=== PATIENT | female | born 1960 | race Caucasian/White ===

== ENCOUNTER → 2018-03-26 | Outpatient (CLI) | payer MEDICARE ==
--- NOTE | 2018-03-26 10:20 | BD ---
EXAMINATION TYPE: Axial Bone Density DATE OF EXAM: 03/26/2018 COMPARISON: NONE CLINICAL HISTORY: post menopausal. Osteoporosis screening. Height: 5'6 Weight: 140 FRAX RISK QUESTIONS: Secondary Osteoporosis: Rheumatoid Arthritis: y RISK FACTORS HISTORY OF: Postmenopausal woman: y MEDICATIONS: Thyroid Medications: Which medication: Levothyroxine How Lon years Additional Medications: arthritis, IBS Additional History: EXAM MEASUREMENTS: Bone mineral densitometry was performed using the [employer] System. Bone mineral density as measured about the Lumbar spine is: ----- L1-L4(G/cm2): 0.779 T Score Values are as follows: ----- L2: -3.6 ----- L3: -3.5 ----- L4: -3.4 ----- L1-L4: -3.3 Bone mineral density about the R hip (g/cm2): 0.606 Bone mineral density about the L hip (g/cm2): 0.718 T Score values are as follows: -----R Neck: -3.1 -----L Neck: -2.3 -----R Total: -2.7 -----L Total: -2.0 IMPRESSION: Osteoporosis (T Score less than -2.5). There is increased fracture risk and therapy is usually indicated based on age. Re-Screen 1-2 years. NOTE: T-SCORE=SD OF THE YOUNG ADULT MEAN.
--- NOTE | 2018-04-04 10:09 | MM ---
Reason for exam: screening (asymptomatic). Last mammogram was performed 2 years and 5 months ago. History: Patient is postmenopausal and is nulliparous. Benign stereotactic core biopsy of the right breast. Benign excisional biopsy of the left breast. Physical Findings: A clinical breast exam by your physician is recommended on an annual basis and results should be correlated with mammographic findings. MG 3D Screening Mammo W/Cad Bilateral CC and MLO view(s) were taken. Prior study comparison: November 02, 2015, mammogram, performed at [facility]. October 30, 2015, mammogram, performed at [facility]. The breast tissue is extremely dense which could obscure a lesion on mammography. Stable benign calcifications. There is no discrete abnormality. No significant changes when compared with prior studies. ASSESSMENT: Benign, BI-RAD 2 RECOMMENDATION: Routine screening mammogram of both breasts in 1 year.
== END ==
LOC: RADMAMWWP 08:23
PROVIDERS: ATTEND Family Medicine
DX: Z12.31 Encounter for screening mammogram for malignant neoplasm of breast (principal); Z78.0 Asymptomatic menopausal state
CPT/HCPCS: 77063; 77067; 77080

== ENCOUNTER 2019-01-20 11:52 | Emergency (ER) | payer MEDICARE ==
[2019-01-20 12:15] VITALS: RESP 16
[2019-01-20] MEDS ORDERED: ONDANSETRON 4 MG/2 ML VIAL IVP STA (12:24)
[2019-01-20] MEDS ORDERED: SODIUM CHLORIDE 0.9% 1,000 ML IV STA (12:24)
[2019-01-20] MEDS ORDERED: KETOROLAC 30 MG/ML 1 ML VIAL IVP STA (12:24)
[2019-01-20 12:44] LABS: Appearance,Urine Clear (Clear); Bilirubin,Urine Negative (Negative); Blood,Urine Negative (Negative); Color,Urine Yellow; Glucose,Urine (UA) Negative (Negative); Ketones,Urine Negative (Negative); Leukocyte Esterase,Urine Negative (Negative); Nitrite,Urine Negative (Negative); Protein,Urine Negative (Negative); Urobilinogen,Urine <2.0 mg/dL (<2.0)
[2019-01-20 12:47] LABS: Basophils % (A) 0 %; Eosinophils % (A) 1 %; HCT 39.7 % (34.0-46.0); HGB 13.7 gm/dL (11.4-16.0); Lymphocytes # (A) 0.6 k/uL (1.0-4.8); Lymphocytes % (A) 7 %; MCH 32.1 pg (25.0-35.0); MCHC 34.5 g/dL (31.0-37.0); Mean Platelet Volume 5.6; Monocytes # (A) 0.1 k/uL (0-1.0); Monocytes % (A) 1 %; Neutrophils # (A) 6.7 k/uL (1.3-7.7); Neutrophils % (A) 90 %; Platelet Count 379 k/uL (150-450); RBC 4.27 m/uL (3.80-5.40); RDW 11.4 % (11.5-15.5); WBC 7.4 k/uL (3.8-10.6)
[2019-01-20 12:52] LABS: INR 0.9 (<1.2); Partial Thromboplastin Time 24.9 sec (22.0-30.0); Prothrombin Time 9.6 sec (9.0-12.0)
[2019-01-20 12:56] LABS: ALT 24 U/L (9-52); AST 26 U/L (14-36); African American GFR (CKD) >90 (>60 ml/min/1.73 sqM); Albumin 4.6 g/dL (3.5-5.0); Alkaline Phosphatase 106 U/L (38-126); Amylase 124 U/L (30-110); Anion Gap 12 mmol/L; Blood Urea Nitrogen 9 mg/dL (7-17); Calcium 9.7 mg/dL (8.4-10.2); Carbon Dioxide 22 mmol/L (22-30); Chloride 108 mmol/L (98-107); Glucose 116 mg/dL (74-99); Potassium 3.7 mmol/L (3.5-5.1); Sodium 142 mmol/L (137-145); Total Bilirubin 0.5 mg/dL (0.2-1.3); Total Protein 7.5 g/dL (6.3-8.2)
--- NOTE | 2019-01-20 13:28 | CT ---
EXAMINATION TYPE: CT abdomen pelvis w con DATE OF EXAM: 01/20/2019 COMPARISON: None HISTORY: LUQ pain CT DLP: 587.2 mGycm Automated exposure control for dose reduction was used. CONTRAST: CT scan of the abdomen pelvis is performed with IV Contrast, patient injected with 100 mL of Isovue 3 00. FINDINGS- LUNG BASES-subsegmental changes involving the lung bases.. LIVER/GB-suspect a small gallbladder polyp or adherent gallstone.. PANCREAS-there is ill-defined attenuation in the region of the head of the pancreas which may be rela paradise to partial volume averaging with duodenum. However, MRI follow-up is recommended to assess the pe ripancreatic region. SPLEEN- No gross abnormality is seen. ADRENALS- No gross abnormality is seen. KIDNEYS/BLADDER- no hydronephrosis or nephrolithiasis. Sub-5 mm right renal lesions too small to charis acterize. BOWEL-a fluid-filled prominent bowel loops involving the sigmoid colon.. Appendix normal. There is pr ominence of the gastric wall as well as the duodenum. LYMPH NODES- No greater than 1cm abdominal or pelvic lymph nodes areappreciated. OSSEOUS STRUCTURES-severe degenerative disc disease L4-L5. OTHER- endometrium prominent. Aorta of normal caliber with mild atherosclerotic changes.. IMPRESSION- 1. There is a fluid-filled left colonic and sigmoid colon bowel loops may been the basis of an ileus or mild colitis correlate clinically. There is a segment of narrowed bowel in the sigmoid region whi ch may be related to peristalsis rather than mucosal lesion correlate with direct visualization as cl inically warranted. 2. There is soft tissue prominence in the peripancreatic region and duodenal sweep. No thickening of the gastric wall noted. Ill-defined attenuation is seen which most likely related the duodenum rather than pancreas. Recommend follow-up upper GI to assess the stomach, and duodenum for possible peptic ulcer disease or mucosal lesion. MRI follow-up to assess the pancreas also recommended. 3.Prominent endometrium correlate with the phase of patient's menstrual cycle.
--- NOTE | 2019-01-20 14:28 | ED ---
Abdominal Pain HPI - General Chief Complaint: Abdominal Pain Stated Complaint: Lt side pain Time Seen by Provider: 01/20/19 12:03 Source: patient Mode of arrival: ambulatory Limitations: no limitations - History of Present Illness Initial Comments: Patient is a 58-year-old female, with past medical history of RA, presenting to the emergency Department with complaints of left upper quadrant pain 4 days. Patient states the pain is sharp and constant in nature, located in her left upper quadrant, left side. Patient denies fever, chills, nausea, vomiting, diarrhea this time. Patient does admit to feeling nauseous 2 days ago with one episode of vomiting. Patient denies any chest pain, shortness of breath, urinary complaints. Patient has no other complaints at this time. Patient admits history of tummy tuck, no other additional abdominal surgeries. Upon arrival to ER, vital signs are stable. - Related Data Home Medications Medication Instructions Recorded Confirmed Abatacept/Maltose [Orencia] 750 mg IVPB Q28D 01/20/19 01/20/19 Atorvastatin [Lipitor] 40 mg PO DAILY 01/20/19 01/20/19 DULoxetine HCL [Cymbalta] 30 mg PO DAILY 01/20/19 01/20/19 HYDROcodone/IBUPROFEN 7.5-200 1 tab PO QID PRN 01/20/19 01/20/19 [Vicoprofen 7.5-200 mg] Levothyroxine Sodium [Synthroid] 100 mg PO DAILY 01/20/19 01/20/19 Linaclotide [Linzess] 290 mcg PO DAILY 01/20/19 01/20/19 Suvorexant [Belsomra] 20 mg PO HS PRN 01/20/19 01/20/19 predniSONE 20 mg PO DAILY PRN 01/20/19 01/20/19 Allergies Allergy/AdvReac Type Severity Reaction Status Date / Time Penicillins Allergy Anaphylaxis Verified 01/20/19 13:07 Review of Systems ROS Statement: Those systems with pertinent positive or pertinent negative responses have been documented in the HPI. ROS Other: All systems not noted in ROS Statement are negative. Past Medical History Past Medical History: Rheumatoid Arthritis (RA) History of Any Multi-Drug Resistant Organisms: None Reported Past Surgical History: Joint Replacement, Orthopedic Surgery, Tonsillectomy Additional Past Surgical History / Comment(s): right knee Past Psychological History: No Psychological Hx Reported Smoking Status: Never smoker Past Alcohol Use History: Occasional Past Drug Use History: None Reported General Exam - General Exam Comments Initial Comments: GENERAL: Well-appearing, well-nourished and in no acute distress. HEAD: Atraumatic, normocephalic. EYES: Pupils equal round and reactive to light, extraocular movements intact, sclera anicteric, conjunctiva are normal. ENT: TMs normal, nares patent, oropharynx clear without exudates. Moist mucous membranes. NECK: Normal range of motion, supple without lymphadenopathy or JVD. LUNGS: Breath sounds clear to auscultation bilaterally and equal. No wheezes rales or rhonchi. HEART: Regular rate and rhythm without murmurs, rubs or gallops. ABDOMEN: Tenderness to palpation in the left upper quadrant, left side of abdomen, mild epigastric tenderness. Soft, normoactive bowel sounds. No guarding, no rebound. No masses appreciated. : Deferred EXTREMITIES: Normal range of motion, no pitting or edema. No clubbing or cyanosis. NEUROLOGICAL: Cranial nerves II through XII grossly intact. Normal speech, normal gait. PSYCH: Normal mood, normal affect. SKIN: Warm, Dry, normal turgor, no rashes or lesions noted. Limitations: no limitations Course Vital Signs 01/20/19 01/20/19 11:58 14:38 Temperature 98.4 F 98.0 F Pulse Rate 97 73 Respiratory 16 16 Rate Blood Pressure 130/98 141/86 O2 Sat by Pulse 100 99 Oximetry Medical Decision Making - Medical Decision Making Patient is a 58-year-old female presenting with left upper quadrant pain 5 days. Patient's vital signs are stable upon arrival. CBC, coags, CMP are within normal limits. UA is normal. CT reveals fluid-filled the left colonic and sigmoid: Bowel loops which may be related to colitis. There is also a soft tissue prominence in the peripancreatic region. Recommended follow up with GI to assess the stomach for possible ulcer. MRI follow-up recommended to assess the pancreas. These findings were discussed with the patient she verbalized understanding. It was discussed with patient that this could be related to an ulcer, colitis or another viral illness. Patient will continue with Motrin or Tylenol for pain relief. Patient also given referral for GI follow-up. Patient is agreement with this plan of care. Patient stable for discharge at this time. Return parameters were discussed with the patient she verbalized understanding. Case discussed with Dr. Deng. - Lab Data Result diagrams: 01/20/19 12:34 01/20/19 12:34 Lab Results 01/20/19 01/20/19 01/20/19 Range/Units 12:34 12:34 12:34 WBC 7.4 (3.8-10.6) k/uL RBC 4.27 (3.80-5.40) m/uL Hgb 13.7 (11.4-16.0) gm/dL Hct 39.7 (34.0-46.0) % MCV 93.0 (80.0-100.0) fL MCH 32.1 (25.0-35.0) pg MCHC 34.5 (31.0-37.0) g/dL RDW 11.4 L (11.5-15.5) % Plt Count 379 (150-450) k/uL Neutrophils % 90 % Lymphocytes % 7 % Monocytes % 1 % Eosinophils % 1 % Basophils % 0 % Neutrophils # 6.7 (1.3-7.7) k/uL Lymphocytes # 0.6 L (1.0-4.8) k/uL Monocytes # 0.1 (0-1.0) k/uL Eosinophils # 0.0 (0-0.7) k/uL Basophils # 0.0 (0-0.2) k/uL PT (9.0-12.0) sec INR (<1.2) APTT (22.0-30.0) sec Sodium 142 (137-145) mmol/L Potassium 3.7 (3.5-5.1) mmol/L Chloride 108 H (98-107) mmol/L Carbon Dioxide 22 (22-30) mmol/L Anion Gap 12 mmol/L BUN 9 (7-17) mg/dL Creatinine 0.61 (0.52-1.04) mg/dL Est GFR (CKD-EPI)AfAm >90 (>60 ml/min/1.73 sqM) Est GFR (CKD-EPI)NonAf >90 (>60 ml/min/1.73 sqM) Glucose 116 H (74-99) mg/dL Calcium 9.7 (8.4-10.2) mg/dL Total Bilirubin 0.5 (0.2-1.3) mg/dL AST 26 (14-36) U/L ALT 24 (9-52) U/L Alkaline Phosphatase 106 (38-126) U/L Total Protein 7.5 (6.3-8.2) g/dL Albumin 4.6 (3.5-5.0) g/dL Amylase 124 H (30-110) U/L Lipase 235 (23-300) U/L Urine Color Yellow Urine Appearance Clear (Clear) Urine pH 6.0 (5.0-8.0) Ur Specific [place] 1.010 (1.001-1.035) Urine Protein Negative (Negative) Urine Glucose (UA) Negative (Negative) Urine Ketones Negative (Negative) Urine Blood Negative (Negative) Urine Nitrite Negative (Negative) Urine Bilirubin Negative (Negative) Urine Urobilinogen <2.0 (<2.0) mg/dL Ur Leukocyte Esterase Negative (Negative) 01/20/19 Range/Units 12:34 WBC (3.8-10.6) k/uL RBC (3.80-5.40) m/uL Hgb (11.4-16.0) gm/dL Hct (34.0-46.0) % MCV (80.0-100.0) fL MCH (25.0-35.0) pg MCHC (31.0-37.0) g/dL RDW (11.5-15.5) % Plt Count (150-450) k/uL Neutrophils % % Lymphocytes % % Monocytes % % Eosinophils % % Basophils % % Neutrophils # (1.3-7.7) k/uL Lymphocytes # (1.0-4.8) k/uL Monocytes # (0-1.0) k/uL Eosinophils # (0-0.7) k/uL Basophils # (0-0.2) k/uL PT 9.6 (9.0-12.0) sec INR 0.9 (<1.2) APTT 24.9 (22.0-30.0) sec Sodium (137-145) mmol/L Potassium (3.5-5.1) mmol/L Chloride (98-107) mmol/L Carbon Dioxide (22-30) mmol/L Anion Gap mmol/L BUN (7-17) mg/dL Creatinine (0.52-1.04) mg/dL Est GFR (CKD-EPI)AfAm (>60 ml/min/1.73 sqM) Est GFR (CKD-EPI)NonAf (>60 ml/min/1.73 sqM) Glucose (74-99) mg/dL Calcium (8.4-10.2) mg/dL Total Bilirubin (0.2-1.3) mg/dL AST (14-36) U/L ALT (9-52) U/L Alkaline Phosphatase (38-126) U/L Total Protein (6.3-8.2) g/dL Albumin (3.5-5.0) g/dL Amylase (30-110) U/L Lipase (23-300) U/L Urine Color Urine Appearance (Clear) Urine pH (5.0-8.0) Ur Specific [place] (1.001-1.035) Urine Protein (Negative) Urine Glucose (UA) (Negative) Urine Ketones (Negative) Urine Blood (Negative) Urine Nitrite (Negative) Urine Bilirubin (Negative) Urine Urobilinogen (<2.0) mg/dL Ur Leukocyte Esterase (Negative) Disposition Clinical Impression: Epigastric pain, Left upper quadrant pain Disposition: HOME SELF-CARE Condition: Stable Instructions (If sedation given, give patient instructions): Abdominal Pain (ED) Additional Instructions: Please return to the Emergency Department if symptoms worsen or any other concerns. Recommend follow-up for GI for further testing. Continue with Motrin for pain relief. Is patient prescribed a controlled substance at d/c from ED?: No Referrals: Jayjay Lawrence MD [Primary Care Provider] - 1-2 days Anabel Hancock MD [STAFF PHYSICIAN] - 1-2 days
[2019-01-20 14:39] VITALS: BP 141/86; PULSE 73; TEMP 98
== END 2019-01-20 14:35 | disposition home or self-care (01) ==
LOC: EC 11:52
DX: R10.12 Left upper quadrant pain (principal); R10.13 Epigastric pain; M06.9 Rheumatoid arthritis, unspecified; Z96.651 Presence of right artificial knee joint; Z79.890 Hormone replacement therapy; Z79.899 Other long term (current) drug therapy; Z88.0 Allergy status to penicillin
CPT/HCPCS: 36415; 80053; 82150; 83690; 85025; 85610; 85730; 81003; 74177; 99284; 96374; 96375; 96361; J2405; J1885; Q9967

== ENCOUNTER → 2019-01-22 | Outpatient (CLI) | payer MEDICARE ==
[~2019-01-22] MED LIST: DENOSUMAB 60 MG/ML 1 ML SYRINGE SQ ONE
[2019-01-22 11:48] VITALS: BP 134/84; PULSE 64; RESP 18; TEMP 97.8
== END ==
LOC: PROCWHC3 11:36
PROVIDERS: ATTEND Physician Assistant
DX: M81.0 Age-related osteoporosis without current pathological fracture (principal)
CPT/HCPCS: 96372; J0897

== ENCOUNTER → 2019-01-23 | Outpatient (CLI) | payer MEDICARE ==
[2019-01-23 19:32] LABS: Carcinoembryonic Antigen 0.9 ng/mL (0.0-4.9)
[2019-01-23 20:01] LABS: Cancer Antigen 19-9 16.4 U/mL (0.0-34.9)
== END | disposition home or self-care (01) ==
LOC: LABWHC1 12:47
PROVIDERS: ATTEND Nurse Practitioner
DX: R10.9 Unspecified abdominal pain (principal)
CPT/HCPCS: 36415; 82378; 86301

== ENCOUNTER → 2019-01-31 | Day surgery (SDC) | payer MEDICARE ==
[2019-01-28 14:17] VITALS: BMI 21.2
[~2019-01-31] MED LIST changes: -DENOSUMAB 60 MG/ML 1 ML SYRINGE SQ ONE; +LACTATED RINGERS 1,000 ML IV SCH; +LIDOCAINE 1% 20 ML VIAL (10MG/ML) FOR IV START INTRADERMA PRN; +PROPOFOL 10 MG/ML 20 ML VIAL IV ONE
[2019-01-31 12:29] VITALS: RESP 16; TEMP 98.6
--- NOTE | 2019-01-31 13:28 | P.PCN ---
Date of Procedure: 01/31/19 Procedure(s) Performed: Brief history: Patient is a pleasant 64-year-old pleasant white female, scheduled for an elective upper endoscopy as well as colonoscopy as a part of evaluation of left upper quadrant abdominal pain for the last several weeks duration. She had CT of abdomen and pelvis done that showed fullness the duodenum and head of the pancreas as well as thickening of the sigmoid colon. Procedure performed: Esophagogastroduodenoscopy with biopsy Colonoscopy with snare polypectomy Preoperative diagnosis: Left upper quadrant abdominal pain Change in bowel habits/abdominal CAT scan of abdomen Anesthesia: MAC Procedure: After informed consent was obtained from the patient was brought into the endoscopy unit and IV sedation was administered by anesthesia under continuous monitoring. Initially upper endoscopy was done. The Olympus GF 160 video endoscope was inserted inserted into the mouth and esophagus intubated without any difficulty and was gradually advanced into the stomach and duodenum and carefully examined. The bulb and second part of the duodenum appeared normal. The scope was then withdrawn into the stomach adequately insufflated with air and upon careful examination the antrum had mild gastritis and biopsies were done from this area. The body, cardia and fundus appeared normal. in the proximal body there were 2 small gastric polyps noted which were biopsied. The scope was then withdrawn into the esophagus. The GE junction was located at 40 cm to the incisors. It appeared regular with no erythema erosions or ulcerations. Rest of the esophagus appeared normal. Patient tolerated the procedure well. At this time the patient continued to remain sedation. Initial digital rectal examination was normal. Olympus CF 160 video colonoscope was then inserted into the rectum and gradually advanced to the cecum without any difficulty. Careful examination was performed as the scope was gradually being withdrawn. The prep was excellent. The cecum, ascending colon, transverse colon, descending colon, sigmoid colon and rectum was diffuse blackish pigmentation throughout the entire colon consistent with melanosis coli. In the base of the cecum there were 2 polyps measuring 1 cm and 2 cm in size which were broad-based both of which were removed by snare polypectomy. Retroflexion was performed in the rectum and no lesions were noted. Patient tolerated the procedure well. Impression: 1.Upper endoscopy revealed mild antral gastritis and small gastric polyps. 2.Colonoscopy revealed severe melanosis coli and 2polyps in the cecum measuring 1 and 2 cm in size both of which were removed by snare polypectomy Recommendations: Findings of this examination were discussed with the patient as well jennifer family. She was advised to follow with the biopsy results. The biopsy the colon polyps revealed adenoma she can have a repeat colonoscopy in 3 years.
[2019-01-31 14:05] VITALS: BP 124/65; PULSE 70
== END | disposition home or self-care (01) ==
LOC: ORWHC2ENDO 12:03
PROVIDERS: ATTEND Internal Medicine Gastroenterology
DX: D12.0 Benign neoplasm of cecum (principal); K29.50 Unspecified chronic gastritis without bleeding; K63.89 Other specified diseases of intestine; K31.7 Polyp of stomach and duodenum; K21.0 Gastro-esophageal reflux disease with esophagitis; Z88.0 Allergy status to penicillin; E07.9 Disorder of thyroid, unspecified; M06.9 Rheumatoid arthritis, unspecified; F41.9 Anxiety disorder, unspecified; Z79.890 Hormone replacement therapy; Z79.52 Long term (current) use of systemic steroids; Z79.899 Other long term (current) drug therapy; Z79.82 Long term (current) use of aspirin
CPT/HCPCS: 88305; 45385; 43239; J2704

== ENCOUNTER → 2019-02-06 | Outpatient (CLI) | payer MEDICARE ==
--- NOTE | 2019-02-07 03:24 | MR ---
EXAMINATION TYPE: MR abdomen wo/w con DATE OF EXAM: 02/06/2019 COMPARISON: None HISTORY: Abdomen pain CONTRAST: Standard multiplanar, multisequence MRI departmental protocol utilizing 6.5 mL intravenous Gadavist g adolinium contrast. FINDINGS: Liver has fairly normal size and contour. The bile ducts are not dilated. Gallbladder is la rge. Common bile duct measures 7 mm. The spleen is intact. There is no sign of a pancreatic mass. Alva creatic duct is tortuous. There is no adrenal mass. Kidneys show satisfactory contrast opacification. There is no hydronephrosi s. There is no retroperitoneal adenopathy. There is no ascites. There is no sign of pleural effusion. I see no evidence of a pancreatic mass. IMPRESSION: The pancreas is irregular contour but no discrete mass seen. No dilated ducts. No focal liver defect.
== END | disposition home or self-care (01) ==
LOC: RADMRIMAIN 07:51
PROVIDERS: ATTEND Nurse Practitioner
DX: R93.5 Abnormal findings on diagnostic imaging of other abdominal regions, including retroperitoneum (principal); K59.09 Other constipation
CPT/HCPCS: 74183; A9585

== ENCOUNTER → 2019-07-31 | Outpatient (CLI) | payer MEDICARE ==
[~2019-07-31] MED LIST changes: +DENOSUMAB 60 MG/ML 1 ML SYRINGE SQ NR; -LACTATED RINGERS 1,000 ML IV SCH; -LIDOCAINE 1% 20 ML VIAL (10MG/ML) FOR IV START INTRADERMA PRN; -PROPOFOL 10 MG/ML 20 ML VIAL IV ONE
[2019-07-31 09:24] VITALS: BP 130/60; PULSE 66; RESP 16; TEMP 97.8
== END | disposition home or self-care (01) ==
LOC: PROCWHC3 09:10
PROVIDERS: ATTEND Physician Assistant
DX: M81.0 Age-related osteoporosis without current pathological fracture (principal)
CPT/HCPCS: 96372

== ENCOUNTER → 2020-08-03 | Outpatient (CLI) | payer MEDICARE ==
--- NOTE | 2020-08-03 10:13 | BD ---
EXAMINATION TYPE: Axial Bone Density DATE OF EXAM: 08/03/2020 COMPARISON: 03/26/2018 DEXA bone scan. CLINICAL HISTORY: Postmenopausal female. Height: 65.5 IN Weight: 136 LBS FRAX RISK QUESTIONS: History of Fracture in Adulthood: FERMIN FOOT FX AGE 57 Secondary Osteoporosis: Rheumatoid Arthritis: YES RISK FACTORS HISTORY OF: Family History of Osteoporosis: YES MOTHER Active: YES Diet low in dairy products/other sources of calcium: YES Postmenopausal woman: AGE 51 Take estrogen and/or progesterone medications: NOT NOW How long: TOOK CONTROL FOR 20 YEARS Adrenal Insufficiency: YES MEDICATIONS: Thyroid Medications: YES Which medication: FIGUEROA TAB AND NATURE THYROID How Long: TOOK THYROID MEDS 30 YEARS. TAKING NATURAL THYROID MEDS 1 YEAR Osteoporosis Medications: YES Which medication: Prolia How Lon YEAR Additional Medications: NATURE THYROID, FIGUEROA TAB, LEFLUNOMIDE, CYMBALTA, LINZESS, VICOPROFEN, MAGNESI UM, ADRENAL MEDS, RA MEDS, MULTI VIT, IRON EXAM MEASUREMENTS: Bone mineral densitometry was performed using the [employer] System. Bone mineral density as measured about the Lumbar spine is: ----- L1-L4(G/cm2): 0.777 T Score Values are as follows: ----- L2: -3.6 ----- L3: -3.5 ----- L4: -3.4 ----- L1-L4: -3.4 Bone mineral density has: NO CHANGE 0.0% since study of: 03/26/2018 Bone mineral density about the R hip (g/cm2): 0.623 Bone mineral density about the L hip (g/cm2): 0.706 T Score values are as follows: -----R Neck: -3.0 -----L Neck: -2.4 -----R Total: -2.5 -----L Total: -2.1 Bone mineral density has: Increased 0.6% since study of: 03/26/2018 IMPRESSION: Osteoporosis (T Score less than -2.5) remains present. There remains increased fracture risk and therapy is usually indicated based on age. Re-Screen 1-2 years. NOTE: T-SCORE=SD OF THE YOUNG ADULT MEAN.
== END | disposition home or self-care (01) ==
LOC: RADBDWWP 07:25
PROVIDERS: ATTEND Family Medicine
DX: M81.0 Age-related osteoporosis without current pathological fracture (principal); M85.89 Other specified disorders of bone density and structure, multiple sites; Z78.0 Asymptomatic menopausal state
CPT/HCPCS: 77080

== ENCOUNTER → 2020-09-14 | Outpatient (CLI) | payer MEDICARE ==
[2020-09-14 14:31] VITALS: BP 154/90; PULSE 79; RESP 16; TEMP 97.4
== END | disposition home or self-care (01) ==
LOC: PROCWHC3 14:22
PROVIDERS: ATTEND Family Medicine
DX: M81.0 Age-related osteoporosis without current pathological fracture (principal)
CPT/HCPCS: 96372

== ENCOUNTER → 2020-09-15 | Outpatient (CLI) | payer MEDICARE ==
--- NOTE | 2020-09-22 10:01 | MM ---
Reason for exam: screening (asymptomatic). Last mammogram was performed 2 years and 6 months ago. History: Patient is postmenopausal and is nulliparous. Benign stereotactic core biopsy of the right breast. Benign excisional biopsy of the left breast. Physical Findings: A clinical breast exam by your physician is recommended on an annual basis and results should be correlated with mammographic findings. MG 3D Screening Mammo W/Cad Bilateral CC and MLO view(s) were taken. Prior study comparison: March 26, 2018, bilateral MG 3d screening mammo w/cad. November 02, 2015, mammogram, performed at [facility]. The breast tissue is extremely dense which could obscure a lesion on mammography. No significant changes when compared with prior studies. ASSESSMENT: Benign, BI-RAD 2 RECOMMENDATION: Routine screening mammogram of both breasts in 1 year.
== END | disposition home or self-care (01) ==
LOC: RADMAMWWP 13:39
PROVIDERS: ATTEND Family Medicine
DX: Z12.31 Encounter for screening mammogram for malignant neoplasm of breast (principal); Z98.890 Other specified postprocedural states
CPT/HCPCS: 77063; 77067

== ENCOUNTER → 2021-06-30 | Outpatient (CLI) | payer MEDICARE ==
--- NOTE | 2021-07-20 11:37 | EM ---
14 Day Event monitor note (only worn for 6 days): Patient wore an event monitor for 6 days from 06/30/2021 until 07/05/2021. Findings: Patient's baseline heart rate was normal sinus rhythm. There were no signficant atrial fibrillation, atrial flutter, or ventricular tachycardia episodes. There were no significant pauses greater than 2 seconds. There were rare PACs representing less than 1% of PAC burden. Patient had one 17 beat run of SVT at approximately 150 bpm. Patient had a total of 13 patient activated events with half of these corresponding with normal sinus rhythm and a half corresponding with PACs and one with SVT. Conclusions: 6 day event monitor showing normal sinus rhythm and rare PACs and one episode of 17 beat run of SVT at approximately 150 bpm. Patient was symptomatic for occasional PACs and occasional SVT however also symptoms not specified corresponding with normal sinus rhythm. [facility]
== END | disposition home or self-care (01) ==
LOC: RADECHMAIN 12:29
PROVIDERS: ATTEND Family Medicine
DX: R00.2 Palpitations (principal)
CPT/HCPCS: 93270

== ENCOUNTER → 2021-08-10 | Outpatient (CLI) | payer MEDICARE ==
[2021-08-10 10:43] VITALS: BP 127/46; PULSE 73; RESP 16; TEMP 98.2
== END | disposition home or self-care (01) ==
LOC: PROCWHC3 10:20
PROVIDERS: ATTEND Nurse Practitioner Family
DX: M81.0 Age-related osteoporosis without current pathological fracture (principal)
CPT/HCPCS: 96372; J0897

== ENCOUNTER → 2022-02-13 | Outpatient (CLI) | payer MEDICARE ==
[2022-02-13 13:57] VITALS: BP 157/90; PULSE 80; RESP 16; TEMP 98
== END ==
LOC: PROCWHC3 13:18
DX: M81.0 Age-related osteoporosis without current pathological fracture (principal); Z88.0 Allergy status to penicillin
CPT/HCPCS: 96372; J0897

== ENCOUNTER → 2022-03-14 | Outpatient (CLI) | payer MEDICARE ==
[2022-03-14 18:44] LABS: Basophils # (A) 0.05 X 10*3/uL (0.00-0.10); Basophils % (A) 0.7 %; Eosinophils # (A) 0.08 X 10*3/uL (0.04-0.35); Eosinophils % (A) 1.1 %; HCT 41.3 % (37.2-46.3); HGB 13.5 g/dL (12.0-15.0); Immature Grans, Automated 0.3 %; Lymphocytes # (A) 1.47 X 10*3/uL (0.90-5.00); Lymphocytes % (A) 19.7 %; MCH 32.3 pg (27.0-32.0); MCHC 32.7 g/dL (32.0-37.0); MCV 98.8 fL (80.0-97.0); Mean Platelet Volume 9.8 fL (9.5-12.2); Monocytes # (A) 0.55 X 10*3/uL (0.20-1.00); Monocytes % (A) 7.4 %; NRBC Per 100 WBC 0 /100 WBCS (0.0-0.0); Neutrophils # (A) 5.29 X 10*3/uL (1.80-7.70); Neutrophils % (A) 70.8 %; Platelet Count 326 X 10*3/uL (140-440); RBC 4.18 X 10*6/uL (4.10-5.20); RDW 11.1 % (11.5-14.5); WBC 7.46 X 10*3/uL (4.50-10.00)
[2022-03-14 19:05] LABS: Erythrocyte Sedimentation Rate 1 mm/Hr (0-30)
[2022-03-14 19:12] LABS: ALT 19 U/L (8-44); AST 20 U/L (13-35); Albumin 4.7 g/dL (3.8-4.9); Alkaline Phosphatase 71 U/L (41-126)
[2022-03-14 19:22] LABS: African American GFR (CKD) 110.3 (60.0-200.0); Bilirubin, Conjugated <0.20 mg/dL (0.20-0.40); Blood Urea Nitrogen 14.7 mg/dL (9.0-27.0); C Reactive Protein <0.30 mg/dL (0.00-0.80); Calcium 9.6 mg/dL (8.7-10.3); Carbon Dioxide 22.3 mmol/L (20.0-27.5); Chloride 104 mmol/L (96-109); Non-African American GFR(CKD) 95.1 (60.0-200.0); Potassium 3.9 mmol/L (3.5-5.5); Sodium 140 mmol/L (135-145)
== END | disposition home or self-care (01) ==
LOC: LABWHC1 10:58
PROVIDERS: ATTEND Internal Medicine Rheumatology
DX: M06.09 Rheumatoid arthritis without rheumatoid factor, multiple sites (principal); Z79.899 Other long term (current) drug therapy
CPT/HCPCS: 36415; 80051; 82040; 82248; 82310; 82565; 84075; 84155; 84450; 84460; 84520; 85025; 85652; 86140

== ENCOUNTER → 2022-08-15 | Outpatient (CLI) | payer MEDICARE ==
[2022-08-15 12:09] VITALS: BP 139/85; PULSE 81; RESP 14; TEMP 97.9
== END ==
LOC: PROCWHC3 11:47
PROVIDERS: ATTEND Family Medicine
DX: M81.0 Age-related osteoporosis without current pathological fracture (principal)
CPT/HCPCS: 96372; J0897

== ENCOUNTER → 2023-11-05 | Outpatient (CLI) | payer MEDICARE ==
--- NOTE | 2023-11-06 10:26 | MM ---
Reason for Exam: Screening (asymptomatic). Last mammogram was performed 1 year(s) and 11 month(s) ago. Patient History: Menarche at age 11. Patient has no children. Postmenopausal. Patient used Hormonal Contraceptives for 7 years. Benign Stereotactic Core Biopsy on the right side. Benign Excisional Biopsy on the left side. Risk Values: Andreina 5 year model risk: 2.8%. NCI Lifetime model risk: 10.3%. Prior Study Comparison: 03/26/2018 Bilateral Screening Mammogram, [facility]. 09/15/2020 Bilateral Screening Mammogram, [facility]. 11/25/2021 Bilateral MG 3D screening mammo w/cad, [facility]. Tissue Density: The breasts are extremely dense, which lowers the sensitivity of mammography. Findings: Analyzed By CAD. There is no suspicious group of microcalcifications or new suspicious mass in either breast. Overall Assessment: Benign, BI-RAD 2 Management: Screening Mammogram of both breasts in 1 year. . Patient should continue monthly self-breast exams. A clinical breast exam by your physician is recommended on an annual basis. This exam should not preclude additional follow-up of suspicious palpable abnormalities. Note on Andreina scores and lifetime risk: 1. A Andreina score greater than 3% is considered moderate risk. If this is the case, consider specialist referral to assess eligibility for a risk reducing agent. 2. If overall lifetime risk for the development of breast cancer is 20% or higher, the patient may qualify for future screening with alternating mammogram and breast MRI. Electronically signed and approved by: Juan Canchola M.D. Radiologis
--- NOTE | 2023-11-06 12:30 | BD ---
EXAMINATION TYPE: Axial Bone Density DATE OF EXAM: 11/05/2023 CLINICAL HISTORY: 63 years old Female. ICD-10 CODE: Z78.0 Post menopausal Height: 65 Weight: 143.3 FRAX RISK QUESTIONS: Alcohol (3 or more units per day): no Family History (Parent hip fracture): no Glucocorticoids (More than 3mos): no (Ex: prednisone, prednisolone, methylprednisolone, dexamethasone, and hydrocortisone). History of Fracture in Adulthood: no Secondary Osteoporosis: 1. Type 1 Diabetes: no 2. Hyperthyroidism: no 3. Menopause before 45: no 4. Malnutrition: no 5. Chronic liver disease: no Rheumatoid Arthritis: yes Current Tobacco Use: no RISK FACTORS HISTORY OF: Surgery to Spine/Hip(right/left)/Wrist (right/left): no MEDICATIONS: Thyroid Medications: synthroid How Lon years Osteoporosis Medications: prolia Which medication: last had a shot over a year ago EXAM MEASUREMENTS: Bone mineral densitometry was performed using the [employer] System. Bone mineral density as measured about the Lumbar spine is: ----- L1-L4(G/cm2): 0.739 T Score Values are as follows: ----- L1: -3.5 ----- L2: -4.2 ----- L3: -4.1 ----- L4: -3.2 ----- L1-L4: -3.7 Z Score Values are as follows: ----- L1: -1.9 ----- L2: -2.6 ----- L3: -2.5 ----- L4: -1.6 ----- L1-L4: -2.1 Bone mineral density has: decreased -4.9 % since study of: 08.03.2020 Bone mineral density about the R hip (g/cm2): 0.649 Bone mineral density about the L hip (g/cm2): 0.705 T Score values are as follows: -----R Neck: -3.3 -----L Neck: -2.8 -----R Total: -2.8 -----L Total: -2.4 Z Score values are as follows: -----R Neck: -1.9 -----L Neck: -1.3 -----R Total: -1.6 -----L Total: -1.2 Bone mineral density has: decreased -5.7 % since study of: 4..2020 FRAX%s: The graph provided illustrates a 25.3% chance for a major osteoporotic fx and a 10.0% chance for the hips probability for fx in 10 years time. IMPRESSION: Osteoporosis (T Score less than -2.5). There is increased fracture risk and therapy is usually indicated based on age. Re-Screen 1-2 years. NOTE: T-SCORE=SD OF THE YOUNG ADULT MEAN.
== END | disposition home or self-care (01) ==
LOC: RADMAMWWP 14:15
PROVIDERS: ATTEND Family Medicine
DX: Z12.31 Encounter for screening mammogram for malignant neoplasm of breast (principal); R92.343 Mammographic extreme density, bilateral breasts; Z78.0 Asymptomatic menopausal state; M85.89 Other specified disorders of bone density and structure, multiple sites
CPT/HCPCS: 77063; 77067; 77080

== ENCOUNTER → 2023-11-28 | Outpatient (CLI) | payer MEDICARE ==
[~2023-11-28] MED LIST changes: -DENOSUMAB 60 MG/ML 1 ML SYRINGE SQ NR; +DENOSUMAB 60 MG/ML 1 ML SYRINGE SQ ONE
== END ==
LOC: PROCWHC3 12:30
PROVIDERS: ATTEND Nurse Practitioner Family
DX: M81.0 Age-related osteoporosis without current pathological fracture (principal)
CPT/HCPCS: 96372

== ENCOUNTER → 2024-03-21 | Day surgery (SDC) | payer MEDICARE ==
[2024-03-20 12:19] VITALS: BMI 22.6
[~2024-03-21] MED LIST changes: -DENOSUMAB 60 MG/ML 1 ML SYRINGE SQ ONE; +LIDOCAINE 1% (10MG/ML) FOR IV START INTRADERMA PRN; +PROPOFOL 10 MG/ML 20 ML VIAL IV ONE
[2024-03-21 11:06] VITALS: RESP 18; TEMP 97.6
[2024-03-21] MEDS: LACTATED RINGERS 1,000 ML IV SCH (11:17)
[2024-03-21] MEDS: IV FLUID CONTINUATION 1,000 ML IV ONE (11:18)
--- NOTE | 2024-03-21 12:01 | P.PCN ---
Date of Procedure: 03/21/24 Procedure(s) Performed: BRIEF HISTORY: Patient is a 64-year-old pleasant female scheduled for an elective colonoscopy as a part of evaluation of prior history of colon polyps PROCEDURE PERFORMED: Colonoscopy with biopsy. PREOPERATIVE DIAGNOSIS: History of colon polyps. IV sedation per Anesthesia. PROCEDURE: After informed consent was obtained, the patient, was brought into the endoscopy unit. IV sedation was administered by Anesthesia under continuous monitoring. Digital rectal examination was normal. Initially the Olympus CF-160 flexible video colonoscope was then inserted in the rectum, gradually advanced into the cecum without any difficulty. Careful examination was performed as the scope was gradually being withdrawn. Ileocecal valve and the appendiceal orifice were visualized and appeared normal. Prep was excellent. Mucosa of the cecum, ascending colon, transverse colon, descending colon, sigmoid colon, and rectum had darkish pigmentation consistent with severe melanosis coli. In the ascending colon there was a 3 mm polyp that was removed by cold biopsy.. Retroflexion was performed in the rectum and no lesions were seen. The patient tolerated the procedure well. 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 She was advised to continue with Linzess and MiraLAX and advised to avoid senna related compounds. Recommended repeat colonoscopy in 5 years..
[2024-03-21 12:18] VITALS: BP 143/80; PULSE 68
== END ==
LOC: ORWHC2ENDO 10:08
PROVIDERS: ATTEND Internal Medicine Gastroenterology
DX: D12.2 Benign neoplasm of ascending colon (principal); K29.70 Gastritis, unspecified, without bleeding; K59.00 Constipation, unspecified; E07.9 Disorder of thyroid, unspecified; M06.9 Rheumatoid arthritis, unspecified; G43.909 Migraine, unspecified, not intractable, without status migrainosus; Z88.0 Allergy status to penicillin; Z79.890 Hormone replacement therapy; Z79.02 Long term (current) use of antithrombotics/antiplatelets; Z79.899 Other long term (current) drug therapy
CPT/HCPCS: 88305; 45380; J2704

== ENCOUNTER 2024-06-03 10:21 | Outpatient (CLI) | payer MEDICARE ==
[2024-06-03] MEDS: DENOSUMAB 60 MG/ML 1 ML SYRINGE SQ NR (10:28)
[2024-06-03 10:33] VITALS: BP 137/83; PULSE 66; RESP 16; TEMP 97.9
== END 2024-06-03 11:14 | disposition home or self-care (01) ==
LOC: PROCWHC3 10:21
PROVIDERS: ATTEND Family Medicine
DX: M81.0 Age-related osteoporosis without current pathological fracture (principal)
CPT/HCPCS: 96372; J0897

== ENCOUNTER → 2024-10-07 | Outpatient (CLI) | payer MEDICARE ==
--- NOTE | 2024-10-07 11:49 | XR ---
EXAMINATION TYPE: XR sacroiliac joint comp BILAT DATE OF EXAM: 10/07/2024 10:50 AM INDICATION: Patient age:Female; 64 years old; Reason for study: M47.812 SPONDYLOSIS, M06.09 RHEUMATOID ARTHRITIS; PHH. pain COMPARISON: CT abdomen and pelvis 01/20/2019 TECHNIQUE: The bilateral SI joints were evaluated with 3 projections. FINDINGS: There is no evidence of fracture or dislocation. There is no soft tissue abnormality. No a bnormal calcifications are present. Multilevel degenerative changes of the lower spine. Bilateral SI joints appear intact with some mild degenerative changes including joint space narrowing with scleros is. There is some subtle osseous erosions of both SI joints. IMPRESSION: 1. No acute osseous pathology. 2. Mild degenerative changes of both SI joints which could be seen with rheumatoid arthritis. [facility], , 10/07/2024 11:47 AM
[2024-10-07 15:01] LABS: Basophils # (A) 0.03 X 10*3/uL (0.00-0.10); Basophils % (A) 0.5 %; Eosinophils # (A) 0.10 X 10*3/uL (0.04-0.35); Eosinophils % (A) 1.5 %; HCT 37.0 % (37.2-46.3); HGB 12.6 g/dL (12.0-15.0); Immature Grans, Automated 0.30 %; Lymphocytes # (A) 1.48 X 10*3/uL (0.90-5.00); Lymphocytes % (A) 22.8 %; MCH 32.2 pg (27.0-32.0); MCHC 34.1 g/dL (32.0-37.0); MCV 94.6 FL (80.0-97.0); Monocytes # (A) 0.42 X 10*3/uL (0.20-1.00); Monocytes % (A) 6.5 %; NRBC Per 100 WBC 0 X 10*3/uL (0.00-0.01); Neutrophils # (A) 4.44 X 10*3/uL (1.80-7.70); Neutrophils % (A) 68.4 %; Platelet Count 346 X 10*3/uL (140-440); RBC 3.91 X 10*6/uL (4.10-5.20); RDW 11.8 % (11.5-14.5); WBC 6.49 X 10*3/uL (4.50-10.00)
--- NOTE | 2024-10-07 15:14 | XR ---
EXAMINATION TYPE: XR foot complete bilateral DATE OF EXAM: 10/07/2024 10:50 AM COMPARISON: None CLINICAL INDICATION: Female, 64 years old with history of M06.09RHEUMATOID ARTHRITIS, M47.812SPONDYLO SIS W/O; PHH, pain TECHNIQUE: XR foot complete bilateral examined in the AP, oblique, and lateral projections. FINDINGS: Right: Fixation hardware involving the first digit proximal phalanx, the first metatarsal and the fif th digit metatarsal. Hardware appears intact No evidence of fracture. Accessory os navicularis Multif ocal degeneration changes throughout the joints of the foot with osteophyte formation and joint space narrowing. Chronic deformities of the interphalangeal joints first the first digit interphalangeal joint Left: Fixation hardware in the proximal phalanx of the first digit appears intact. Multilevel joint s pace narrowing osteophyte formation with irregular morphology to the interphalangeal joints throughou t the foot. Accessory ossicle is present. No evidence for acute fracture. No significant soft tissue swelling. No acute erosive changes definitively visualized. IMPRESSION: 1. No evidence of acute fracture. 2. Moderate degeneration changes throughout the joints of the foot worse in the interphalangeal join ts of the left and worse on the left third through fifth digits and right first digit. 3. Surgical changes bilaterally with hardware intact. 4. 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 Worse on the left fifth di git. [facility], , 10/07/2024 3:11 PM
--- NOTE | 2024-10-07 15:24 | XR ---
EXAMINATION TYPE: Arthritis. DATE OF EXAM: 10/07/2024 10:50 AM COMPARISON: None CLINICAL INDICATION: Female, 64 years old with history of M06.09RHEUMATOID ARTHRITIS, M47.812SPONDYLO SIS W/O; PHH, pain TECHNIQUE: XR hand complete bilateral 3 views were obtained. FINDINGS: Right: Post surgical changes of the second through fifth digits with fusion of the proximal interphal angeal joints. The second third digit also demonstrate fixation hardware which appears intact. There is severe degeneration changes of the base of the first digit carpometacarpal joint. Other degenerati on changes with joint space and ossified formation. No evidence of fracture. Left: Severe degeneration changes of the joints of the left hand involving the interphalangeal joint of the first digit and the proximal interphalangeal joints of digits 2 through 5. No evidence for acu te fracture. There is severe degeneration changes of the base of the first digit carpometacarpal join t with joint space narrowing and osteophyte formation. IMPRESSION: 1. No acute osseous pathology. 2. Multifocal osteoarthrosis throughout the joints of the hand somewhat worse at the base of the fir st digit bilaterally at the carpometacarpal joint. 3. Fusion of the second through fifth digits proximal interphalangeal joints of the right hand. 4. Severe degeneration changes of the left hand proximal interphalangeal joints gullwing morphology suggestive of erosive arthritis [facility], , 10/07/2024 3:21 PM
[2024-10-07 15:58] LABS: Hepatitis B Surface Antigen Nonreactive (Nonreactive); Hepatitis C IgG Antibody Nonreactive (Nonreactive)
[2024-10-07 16:04] LABS: Hepatitis B Surface AB- Quant 3.5 mIU/mL
[2024-10-07 16:08] LABS: ALT 24 U/L (8-44); AST 28 U/L (13-35); Albumin 4.7 g/dL (3.8-4.9); Albumin/Globulin Ratio 3.36 Ratio (1.60-3.17); Alkaline Phosphatase 82 U/L (41-126); Anion Gap 12.70 mmol/L (4.00-12.00); BUN/Creat Ratio 16.67 Ratio (12.00-20.00); Blood Urea Nitrogen 10.0 mg/dL (9.0-27.0); Calcium 8.8 mg/dL (8.7-10.3); Carbon Dioxide 20.3 mmol/L (21.6-31.8); Chloride 109 mmol/L (96-109); Globulin 1.4 g/dL (1.6-3.3); Glucose 90 mg/dL (70-110); Potassium 3.9 mmol/L (3.5-5.5); Rheumatoid Factor, Qnt <15 IU/mL (0-15); Sodium 142 mmol/L (135-145); Total Protein 6.1 g/dL (6.2-8.2)
[2024-10-07 18:03] LABS: Cyclic Citrull Pep IgG Unit <1.5 U/mL (<=3.9)
[2024-10-08 08:59] LABS: HLA B27 NEGATIVE
== END | disposition home or self-care (01) ==
LOC: LABWHC1 10:07
PROVIDERS: ATTEND Internal Medicine
DX: M06.09 Rheumatoid arthritis without rheumatoid factor, multiple sites (principal); M47.812 Spondylosis without myelopathy or radiculopathy, cervical region; L92.0 Granuloma annulare; Z79.899 Other long term (current) drug therapy; M46.1 Sacroiliitis, not elsewhere classified; Z98.890 Other specified postprocedural states; M19.041 Primary osteoarthritis, right hand; M19.042 Primary osteoarthritis, left hand; M19.072 Primary osteoarthritis, left ankle and foot; M19.071 Primary osteoarthritis, right ankle and foot
CPT/HCPCS: 36415; 72202; 80053; 82306; 85025; 85652; 86038; 86140; 86200; 86431; 86480; 86705; 86706; 86803; 86812; 87340